=== PATIENT | male | born 1985 | race Caucasian/White ===

== ENCOUNTER 2021-05-10 11:48 | Emergency (ER) | payer OTHER, SELFPAY ==
[2021-05-10] MEDS ORDERED: Acetaminophen 500 MG TAB ONE (12:13)
== END 2021-05-10 13:11 | disposition home or self-care (01) ==
LOC: MADERS 11:48
DX: S00.03XA Contusion of scalp, initial encounter (principal); F17.220 Nicotine dependence, chewing tobacco, uncomplicated; Z87.442 Personal history of urinary calculi; W17.89XA Other fall from one level to another, initial encounter
CPT/HCPCS: 70450; 72125